=== PATIENT | male | born 1955 | race Caucasian/White ===

== ENCOUNTER → 2017-12-31 | Outpatient (CLI) | payer OTHER | LOC: BMCIMAGING 10:03 | PROVIDERS: ATTEND Emergency Medicine | DX: J40 Bronchitis, not specified as acute or chronic (principal) ==

== ENCOUNTER → 2018-02-16 | Outpatient (CLI) | payer OTHER | LOC: FIMAGING 15:12 | PROVIDERS: ATTEND Internal Medicine | DX: J98.4 Other disorders of lung (principal); I77.819 Aortic ectasia, unspecified site; K80.20 Calculus of gallbladder without cholecystitis without obstruction ==

== ENCOUNTER 2018-03-01 08:09 | Inpatient (IN) | payer OTHER ==
--- NOTE | 2018-03-01 09:40 | EDPHY ---
H & P Smoking Status: Never smoked Time Seen by Provider: 03/01/18 09:02 HPI/ROS: CHIEF COMPLAINT: Dyspnea, weakness, abdominal pain and bloating HISTORY OF PRESENT ILLNESS: 62-year-old male presents to the emergency department with weakness and dyspnea. Patient states since November she has had a chronic cough after recently moving here from [facility]. He has seen his primary care provider for this and has tried antibiotics, prednisone, Advair , albuterol inhaler all without relief. He most recently tried omeprazole without relief as well. He went back to [facility] to see a sledger and have pulmonary function testing done and he was told that this was fairly normal and did not have great improvement after nebulizer. He has no associated pain in his chest with this. He does knows not feel he can get a full deep breath of air. He has been becoming progressively more short of breath especially with just walking to the bathroom or down the carl. He has not noticed any pain or swelling in his lower legs. He had a CT scan of his chest ordered by his primary care provider, Dr. Braden Stringer a week and half ago. This was with IV contrast and was not angiogram and was otherwise within normal limits. He has had abdominal bloating and some mild diffuse pain associated with this as well as loss of appetite over last 2-3 days. He had a bowel movement this morning and had more hard formed stool. REVIEW OF SYSTEMS: Constitutional: No fever, no chills. Eyes: No double or blurry vision. ENT: No sore throat. Respiratory: Cough, shortness of breath Cardiac: No chest pain. Gastrointestinal: Abdominal pain and bloating as above. Anorexia. No vomiting or diarrhea. Genitourinary: No dysuria. Musculoskeletal: No neck or back pain. Skin: No rashes. Neurological: No headache. (Rachel Montiel) Past Medical/Surgical History: Hypertension (Rachel Montiel) Social History: , recently moved to [place] from [facility] (Rachel Montiel) Physical Exam: General Appearance: Alert, no distress. Heart rate 110, blood pressure 137/87 , 92% on room air. Eyes: Pupils equal and round. Extraocular motions are all intact. ENT: Mouth: Mucous membranes moist. Respiratory: No wheezing, rhonchi, or rales, lungs are clear to auscultation. Cardiovascular: Regular rate and rhythm. Gastrointestinal: Abdomen is soft, obese. He has mild diffuse tenderness with palpation. There is no masses, rebound or guarding noted. Neurological: Alert and oriented x 3, cranial nerves II through XII grossly intact Skin: Warm and dry, no rashes. Musculoskeletal: Nontender to palpate along the cervical, thoracic or lumbar spine. Neck is supple. Extremities: Full range of motion and no peripheral edema. Psychiatric: Patient is oriented X 3, there is no agitation. (Rachel Montiel) Constitutional: Initial Vital Signs Temperature (C) 36.7 C 03/01/18 08:14 Heart Rate 110 H 03/01/18 08:14 Respiratory Rate 18 03/01/18 08:14 Blood Pressure 137/87 H 03/01/18 08:14 O2 Sat (%) 92 03/01/18 08:14 O2 Delivery Mode Nasal Cannula O2 (L/minute) 2 Allergies/Adverse Reactions: No Known Allergies Allergy (Unverified 03/01/18 08:13) Home Medications: Medication Instructions Recorded Acetaminophen [Tylenol 325mg (*)] 325 mg PO DAILY PRN 03/01/18 Albuterol [Proventil Inhaler HFA 1 puffs IH TID 03/01/18 (*)] Cetirizine [ZyrTEC 10 mg (*)] 10 mg PO DAILY 03/01/18 Fluticasone/Salmeter 100/50Mcg 1 puffs IH BID 03/01/18 [Advair 100/50 (*)] Hydrochlorothiazide [HCTZ (*)] 12.5 mg PO DAILY 03/01/18 Omeprazole 40 mg PO DAILY 03/01/18 Simethicone [Gas Relief] 80 - 160 mg PO DAILY PRN 03/01/18 Valsartan 320 mg PO DAILY 03/01/18 Medical Decision Making - Diagnostics Imaging: Discussed imaging studies w/ gas meter mechanic Radiologist - Diagnostics Imaging Results: Imaging Impressions Chest/Thorax CTA 03/01/18 11:21 Impression: 1. Multiple diffuse high volume pulmonary thromboemboli. 2. Minimal linear atelectasis in the anterior basal segment of the right lower lobe and the posterior basal segment of the left lower lobe versus small pulmonary infarcts. 3. Possible right heart strain. Findings and recommendations discussed with Emergency Department physician, Dr. Maurilio Escobedo at 1226 hours on March 01, 2018. Final report concurs with initial preliminary interpretation. ED Course/Re-evaluation: 62-year-old male presents to the emergency department with shortness of breath and fatigue. The case was discussed with Dr. Maurilio Escobedo, secondary supervising physician, who also evaluated the patient. Laboratory rib studies reveal CBC within normal limits. His chemistries reveal creatinine of 1.7 which is up from 1.2 two weeks prior. Sodium and potassium were normal. D-dimer was over 13, BNP was over 10,000, troponin was elevated at 0.388. Dr. Maurilio Escobedo as well as myself spoke with Dr. Gavin Penn, on-call [employer], who also evaluated the patient. Agreed with obtaining echocardiogram in the emergency department. Echocardiogram revealed evidence of right ventricular strain. Discussion was made with Dr. Maurilio Escobedo as well as Radiology as well as cardiology about imaging. Since the patient had an elevated creatinine 1.7 and and his blood pressure was 110/80 with a heart rate of 105, decision was made by non profit job [employer] as well as Dr. Maurilio Escobedo and Dr. Randy Walls, radiologist, to obtain CT pulmonary angiogram and not the triple rule out scan. CT pulmonary angiogram reveals multiple high volume clot noted. No saddle emboli noted. Also evidence of right ventricular strain and pulmonary hypertension. 12:38 p.m.: I spoke with Dr. Carlos Gonsales, sledger on-call, given his right ventricular strain, pulmonary hypertension, high clot volume pulmonary embolism, elevated troponin, and being symptomatic with dyspnea and especially dyspnea on exertion regarding possible thrombolytics. Dr. Carlos Gonsales will talk with Interventional Radiology regarding thrombolytics to see if you would be a candidate. The patient will be admitted to the hospitalist to Dr. Clark to the ICU. ( Rachel Montiel) Differential Diagnosis: Shortness of breath including but not limited to pulmonary infectious process, COPD, asthma, pulmonary embolus and congestive heart failure. (Rachel Montiel) Other Provider: I have discussed this case with FLORENCIA Carmichael, Dr. Penn, non [employer], and Dr. Walls, radiologist. We have reviewed the treatment and diagnostic plan; everyone is in agreement. 1247: I assessed this patient and discussed laboratory and imaging findings. I have extensively discussed the risks and benefits of anticoagulation as well as thrombolysis. The patient is comfortable with plan for medications and admission. Critical care time spent by me, Dr. Escobedo, exclusively with this patient was 30 minutes, exclusive of PA time and exclusive of procedures. The organ system at risk was cardiopulmonary and I consulted with Dr. Bragg and Dr. Walls, gave anticoagulants and thrombolytics, and transferred the patient to the ICU to prevent worsening of the patients condition. (Maurilio Escobedo) - Data Points Laboratory Results: Laboratory Results 03/01/18 08:09 03/01/18 08:09 03/01/18 03/01/18 03/01/18 08:09 08:09 08:09 WBC 10.34 10^3/uL H 10^3/uL (3.80-9.50) RBC 6.08 10^6/uL 10^6/uL (4.40-6.38) Hgb 16.9 g/dL g/dL (13.7-17.5) Hct 49.0 % % (40.0-51.0) MCV 80.6 fL L fL (81.5-99.8) MCH 27.8 pg L pg (27.9-34.1) MCHC 34.5 g/dL g/dL (32.4-36.7) RDW 13.5 % % (11.5-15.2) Plt Count 245 10^3/uL 10^3/uL (150-400) MPV 10.3 fL fL (8.7-11.7) Neut % (Auto) 78.7 % H % (39.3-74.2) Lymph % (Auto) 12.4 % L % (15.0-45.0) [place] % (Auto) 7.9 % % (4.5-13.0) Eos % (Auto) 0.4 % L % (0.6-7.6) Baso % (Auto) 0.2 % L % (0.3-1.7) Nucleat RBC Rel Count 0.0 % % (0.0-0.2) Absolute Neuts (auto) 8.14 10^3/uL H 10^3/uL (1.70-6.50) Absolute Lymphs (auto) 1.28 10^3/uL 10^3/uL (1.00-3.00) Absolute Monos (auto) 0.82 10^3/uL H 10^3/uL (0.30-0.80) Absolute Eos (auto) 0.04 10^3/uL 10^3/uL (0.03-0.40) Absolute Basos (auto) 0.02 10^3/uL 10^3/uL (0.02-0.10) Absolute Nucleated RBC 0.00 10^3/uL 10^3/uL (0-0.01) Immature Gran % 0.4 % % (0.0-1.1) Immature Gran # 0.04 10^3/uL 10^3/uL (0.00-0.10) D-Dimer 13.21 ug/mLFEU H ug/mLFEU (0.00-0.50) Sodium 140 mEq/L mEq/L (135-145) Potassium 4.0 mEq/L mEq/L (3.3-5.0) Chloride 101 mEq/L mEq/L (97-110) Carbon Dioxide 25 mEq/l mEq/l (22-31) Anion Gap 14 mEq/L mEq/L (8-16) BUN 23 mg/dL mg/dL (7-23) Creatinine 1.7 mg/dL H mg/dL (0.7-1.3) Estimated GFR 41 Glucose 134 mg/dL H mg/dL (70-100) Calcium 9.9 mg/dL mg/dL (8.5-10.4) Troponin I 0.388 ng/mL H ng/mL (0.000-0.034) NT-Pro-B Natriuret Pep 01694 pg/mL H pg/mL (0-125) Medications Given: Sodium Chloride (Ns) 1,000 mls @ 125 mls/hr IV CONT BRAYDEN Stop: 08/28/18 13:59 Last Admin: 03/01/18 15:06 Dose: 1,000 mls Discontinued Medications Enoxaparin Sodium (Lovenox) 120 mg SC EDNOW ONE Stop: 03/01/18 12:47 Last Admin: 03/01/18 13:39 Dose: 120 mg Sodium Chloride (Ns) 1,000 mls @ 0 mls/hr IV ONCE ONE PRN Reason: Wide Open Stop: 03/01/18 10:13 Last Admin: 03/01/18 10:23 Dose: Not Given Departure - Departure Disposition: [facility] Acute Clinical Impression: Multiple pulmonary emboli, Pulmonary hypertension Dyspnea Qualifiers: Dyspnea type: unspecified Qualified Code(s): R06.00 - Dyspnea, unspecified
[2018-03-01 09:59] LABS: PLATELET COUNT 245 10^3/uL (150-400)
--- NOTE | 2018-03-01 10:00 | CPEKG ---
Heart Rate: 102 RR Interval: 588 P-R Interval: 168 QRSD Interval: 108 QT Interval: 356 QTC Interval: 464 P [place]: 7 QRS [place]: 148 T Wave [place]: 1 EKG Severity - ABNORMAL ECG - EKG Impression: SINUS TACHYCARDIA EKG Impression: PROBABLE LEFT ATRIAL ABNORMALITY EKG Impression: LEFT POSTERIOR FASCICULAR BLOCK EKG Impression: ABNRM R PROG, CONSIDER ASMI OR LEAD PLACEMENT Electronically Signed By: Maurilio Escobedo 01-Mar-2018 14:57:15
[2018-03-01] MEDS ORDERED: NS 1,000 ML IV ONE (10:12)
[2018-03-01] MEDS ORDERED: IOPAMIDOL (ISOVUE 370) 100 ML BTL IV ONE (11:58)
--- NOTE | 2018-03-01 12:36 | ECHO ---
[email or web address] [address] Main: [phone] Fax: Transthoracic Echocardiogram Name: MARLYS MCCARTY MR#: [id number] Study Date: 03/01/2018 Study Time: 10:26 AM Date of : 1955 Age: 62 year(s) Height: 167.6 cm (66 in.) Weight: 113.4 kg (250 lb.) BSA: 2.2 m2 Gender: Male Examination: Echo Indication: Cardiac: dyspnea, Abnormal EKG Image Quality: Adequate Contrast: Requested by: Rachel Montiel BP: 115 mmHg/81 mmHg Heart Rate: Rhythm: Indication: Cardiac: dyspnea, Abnormal EKG Procedure Staff Churn Drill Operator: Belen Parks [facility] Reading Physician: Gavin Penn MD Requesting Provider: Conclusions: Normal size left ventricle. Moderate concentric LV hypertrophy. Normal global systolic LV function. EF is 55 %. Enlarged right heart. Trivial to mild mitral regurgitation. The aortic valve is tri-leaflet. No aortic valve stenosis is present. The tricuspid valve is normal in appearance and function. Mild to moderate tricuspid valve regurgitation. Right ventricular systolic pressure measures 59mmHg. Mild pulmonic valve regurgitation is noted. Normal size ascending aorta measuring 3.5 cm. The IVC is dilated. Measurements: Chambers Valvular Assessment AV/MV Valvular Assessment TV/PV Normal Normal Normal Name Value Range Name Value Range Name Value Range Ao Jessie (2D): 3.3 cm (1.4 cm-2.6 AV Vmax: 1.35 m/s (1 m/s-1.7 TR Vmax: 3.50 mm/s ( - ) cm) m/s) TR PGmax: 49 mmHg ( - ) IVSd (2D): 1.8 cm (0.6 cm-1.1 AV maxP mmHg ( - ) syst. PAP: 59 mmHg ( - ) cm) AV meanP mmHg ( - ) PV Vmax: 0.60 m/s (0.6 m/s-0.9 LVDd (2D): 3.8 cm (4.2 cm-5.9 LVOT Vmax: 1.06 m/s (0.7 m/s-1.1 m/s) cm) m/s) PV PGmax: 1 mmHg ( - ) LVDs (2D): 2.4 cm (2.1 cm-4 BRIGIDO (Vmax): 3.3 cm2 ( - ) cm) BRIGIDO (VTI): 3.4 cm ( - ) LVPWd (2D): 1.4 cm (0.6 cm-1 MV E Vmax: 0.87 m/s ( - ) cm) MV A Vmax: 0.55 m/s ( - ) LVOTd 2.3 cm 2.3 cm mm MV E/A: 1.58 ( - ) Patient: MARLYS MCCARTY Study Date: 03/01/2018 Page 1 of 2 10:26 AM LVEF (MOD4): 55 % (>=55 %) MV PHT: 0.036 s ( - ) RVDd(2D): 4.0 cm (1.9 cm-3.8 MVA (PHT): 6.1 s ( - ) cmmm) Continued Measurements: Chambers Valvular Assessment AV/MV Valvular Assessment TV/PV Name Value Name Value Name Value LADs: 3.9 cm MV DecTime: 113 m/s CVP (est.): 10 mmHg LADs Lon.3 cm MV E/E' Lateral: 11.90 LA Area: 19.6 cm2 RA Area: 26.8 cm2 Additional Vessels Name Value Ao Ascendin.5 cm Inferior Vena Cava: 2.5 cm Findings: Left Ventricle: Normal size left ventricle. Moderate concentric LV hypertrophy. Normal global systolic LV function. EF is 55 %. No regional wall motion abnormality. Unable to assess diastolic dysfunction. Right Ventricle: Enlarged right heart. Left Atrium: The left atrium is normal in size. Right Atrium: The right atrium is normal in size. Mitral Valve: The mitral valve is normal in appearance and function. Trivial to mild mitral regurgitation. Aortic Valve: The aortic valve is tri-leaflet. There is no significant aortic valve regurgitation. No aortic valve stenosis is present. Tricuspid Valve: The tricuspid valve is normal in appearance and function. Mild to moderate tricuspid valve regurgitation. Right ventricular systolic pressure measures 59mmHg. The pulmonary artery pressure is moderately increased. Pulmonic Valve: The pulmonic valve is normal in appearance and function. Mild pulmonic valve regurgitation is noted. Aorta: The aorta is normal. Normal size aortic root measuring 3.3 cm. Normal size ascending aorta measuring 3.5 cm. IVC: The IVC is dilated. Pericardium: No pericardial effusion. No pleural effusion. (No Signature Object) Patient: MALRYS MCCARTY Study Date: 03/01/2018 Page 2 of 2 10:26 AM [id number]
[2018-03-01] MEDS ORDERED: ENOXAPARIN 120 MG/0.8 ML SYR SC ONE (12:46)
[2018-03-01] MEDS ORDERED: ACETAMINOPHEN 325 MG TAB PO PRN (13:59)
[2018-03-01] MEDS ORDERED: ONDANSETRON 4 MG/2 ML VIAL IVP PRN (13:59)
[2018-03-01] MEDS ORDERED: ONDANSETRON DISINTEGRATING 4 MG TAB PO PRN (13:59)
[2018-03-01] MEDS ORDERED: oxyCODONE IR 5 MG TAB PO PRN (13:59)
[2018-03-01] MEDS ORDERED: LORazepam 2 MG/ML INJ IVP PRN (13:59)
--- NOTE | 2018-03-01 14:01 | PDCARCONS ---
Cardiology Consult Reason for Consult: Shortness of breath and chest tightness Chief Complaint: shortness of breath and chest tightness Requesting Physician: ER physician History of Present Illness: Patient is a 62 y/o male with a history of HTN, but no DM, HLP, or CAD who presented to [facility] ED for worsening dyspnea, hypotension, and chest discomfort. Patient moved from [place] about 5 months ago and a month later, developed a nonproductive cough and very mild dyspnea on exertion. A week ago he flew back to [place] and saw a wet process miller head for workup, which was unremarkable (per patient reports). His PCP has given him antibiotics, Advair, and an albuterol inhaler for his cough, none of which improved his symptoms. For the last week, his dyspnea has significantly worsened. He is not usually on oxygen at home, but began using his 's oxygen. In the ED, his troponin was elevated (0.388) , D-dimer was elevated (13.21), and his creatinine was slightly increased from previously (1.7 from 1.5). His EKG showed some ST changes as well as significant right axis deviation. In the ER, the patient appeared somewhat uncomfortable. Blood pressure was noted to be within normal limits. 12 point review of systems was unremarkable. History Information - Allergies/Home Medication List Allergies/Adverse Reactions: No Known Allergies Allergy (Unverified 03/01/18 08:13) Home Medications: Acetaminophen [Tylenol 325mg (*)] 325 mg PO DAILY PRN 03/01/18 [Last Taken Unknown] Albuterol [Proventil Inhaler HFA (*)] 1 puffs IH TID 03/01/18 [Last Taken ] Cetirizine [ZyrTEC 10 mg (*)] 10 mg PO DAILY 03/01/18 [Last Taken 03/01/18] Fluticasone/Salmeter 100/50Mcg [Advair 100/50 (*)] 1 puffs IH BID 03/01/18 [ Last Taken 02/28/18 21:00] Hydrochlorothiazide [HCTZ (*)] 12.5 mg PO DAILY 03/01/18 [Last Taken 03/01/18] Omeprazole 40 mg PO DAILY 03/01/18 [Last Taken 03/01/18] Simethicone [Gas Relief] 80 - 160 mg PO DAILY PRN 03/01/18 [Last Taken 02/28/18 21:00] Valsartan 320 mg PO DAILY 03/01/18 [Last Taken 03/01/18] I have personally reviewed and updated: family history, medical history, social history, surgical history Past Medical History: - Past Medical History hypertension - Surgical History Reports: appendectomy - Family History Positive for: myocardial infarction, stroke Additional family history: prostate cancer - Social History Smoking Status: Never smoked Alcohol Use: None Drug Use: None Cardiac History - Cardiac History Cardiac Risk Factors: hypertension (>140/90), male Timing/Duration: Weeks Severity: moderate Severity Scale: 4 Location: epigastric Activities at Onset: activity Modifying Factors: improves with: lying down, oxygen, rest Associated Symptoms: shortness of breath Physical Exam Physical Exam: Temp Pulse Resp BP Pulse Ox 36.7 C 101 H 20 119/88 H 93 03/01/18 08:59 03/01/18 12:50 03/01/18 12:50 03/01/18 12:50 03/01/18 12:50 O2 (L/minute) 2 Constitutional: no apparent distress, appears nourished, not in pain Eyes: PERRL Ears, Nose, Mouth, Throat: moist mucous membranes, hearing normal, ears appear normal Cardiovascular: regular rate and rhythym, JVD, pulses symmetric bilaterally, No systolic murmur, No diastolic murmur Peripheral Pulses: 2+: dorsalis-pedis (R), dorsalis-pedis (L) Respiratory: no respiratory distress, clear to auscultation, No respiratory distress Gastrointestinal: normoactive bowel sounds Skin: warm, No rash Musculoskeletal: full muscle strength Neurologic: AAOx3, sensation intact bilaterally, CN II-XII Intact Psychiatric: interacting appropriately, not anxious, not encephalopathic Lab and Imaging 03/01/18 08:09 03/01/18 08:09 WBC 10.34 10^3/uL (3.80-9.50) H 03/01/18 08:09 RBC 6.08 10^6/uL (4.40-6.38) 03/01/18 08:09 Hgb 16.9 g/dL (13.7-17.5) 03/01/18 08:09 Hct 49.0 % (40.0-51.0) 03/01/18 08:09 MCV 80.6 fL (81.5-99.8) L 03/01/18 08:09 MCH 27.8 pg (27.9-34.1) L 03/01/18 08:09 MCHC 34.5 g/dL (32.4-36.7) 03/01/18 08:09 RDW 13.5 % (11.5-15.2) 03/01/18 08:09 Plt Count 245 10^3/uL (150-400) 03/01/18 08:09 MPV 10.3 fL (8.7-11.7) 03/01/18 08:09 Neut % (Auto) 78.7 % (39.3-74.2) H 03/01/18 08:09 Lymph % (Auto) 12.4 % (15.0-45.0) L 03/01/18 08:09 [place] % (Auto) 7.9 % (4.5-13.0) 03/01/18 08:09 Eos % (Auto) 0.4 % (0.6-7.6) L 03/01/18 08:09 Baso % (Auto) 0.2 % (0.3-1.7) L 03/01/18 08:09 Nucleat RBC Rel Count 0.0 % (0.0-0.2) 03/01/18 08:09 Absolute Neuts (auto) 8.14 10^3/uL (1.70-6.50) H 03/01/18 08:09 Absolute Lymphs (auto) 1.28 10^3/uL (1.00-3.00) 03/01/18 08:09 Absolute Monos (auto) 0.82 10^3/uL (0.30-0.80) H 03/01/18 08:09 Absolute Eos (auto) 0.04 10^3/uL (0.03-0.40) 03/01/18 08:09 Absolute Basos (auto) 0.02 10^3/uL (0.02-0.10) 03/01/18 08:09 Absolute Nucleated RBC 0.00 10^3/uL (0-0.01) 03/01/18 08:09 Immature Gran % 0.4 % (0.0-1.1) 03/01/18 08:09 Immature Gran # 0.04 10^3/uL (0.00-0.10) 03/01/18 08:09 D-Dimer 13.21 ug/mLFEU (0.00-0.50) H 03/01/18 08:09 Sodium 140 mEq/L (135-145) 03/01/18 08:09 Potassium 4.0 mEq/L (3.3-5.0) 03/01/18 08:09 Chloride 101 mEq/L (97-110) 03/01/18 08:09 Carbon Dioxide 25 mEq/l (22-31) 03/01/18 08:09 Anion Gap 14 mEq/L (8-16) 03/01/18 08:09 BUN 23 mg/dL (7-23) 03/01/18 08:09 Creatinine 1.7 mg/dL (0.7-1.3) H 03/01/18 08:09 Estimated GFR 41 03/01/18 08:09 Glucose 134 mg/dL (70-100) H 03/01/18 08:09 Calcium 9.9 mg/dL (8.5-10.4) 03/01/18 08:09 Troponin I 0.388 ng/mL (0.000-0.034) H 03/01/18 08:09 NT-Pro-B Natriuret Pep 65910 pg/mL (0-125) H 03/01/18 08:09 Visualized and Interpreted Chest x-ray results: No EKG Interpretation: Positive for: normal sinsus rhythm EKG additional interpertation: S1Q3T3 with sinus tachycardia and new right axis deviation Telemetry: Sinus tachycardia Echocardiogram: Normal LVEF with dilation of the RV. There is not significant valvular pathology. There is mild to moderate LVH noted. No pericardial effusion A/P Assessment: Patient is a 62 y/o male with HTN, and progressive dyspnea. No CAD, HLP, or DM. New right axis deviation with sinus tachycardia, S1Q3T3 pattern on ECG. Mild elevation in creatinine (over baseline) has been noted. Question about CAD given ECG changes and mild elevation to the troponin. There was also significant elevation to both BNP and d-dimer. Cardiology with recommendations to pursue CT angiography (to rule out PE). This testing was performed and revealed large volume PE. Plan: Would have patient assessed by Pulm/Crit care team (and likely IR given the thrombus burden noted). Cardiology can see the patient as needed through this admission.
--- NOTE | 2018-03-01 14:19 | PDGENHP ---
History and Physical - Chief Complaint Hypotension, Dyspnea - History of Present Illness This is a 62 yo male who presented to the ED due to hypotension and dyspnea. He does not typically use supplemental Oxygen but during the past few days he has been using his 's O2. He noted his BP to be in the 80's systolic and presented to the ED. He has been experiencing chest tightness for the past few days. Trop was checked and it was elevated. D-dimer is elevated. A CTA of the chest shows High volume P.E. with right strain. No saddle P.E. An echocardiogram is c/w an EF of 55% and right sided strain. There is no documented wall motion abnormalities. EKG does not show ischemia. He moved from [place] about a year ago. He says that shortly after moving here he began having resp issues to include SOB and cough. His insurance is through [place] and therefore he flew back to [place] recently to be evaluated by a faro dealer and he had a an unremarkable w/u. It is unclear what w/u was done. Since November He has had a cough. He has seen his primary care provider for this and has tried antibiotics, prednisone, Advair, albuterol inhaler all without relief. He most recently tried omeprazole without relief as well. PM/SHx: Hypertension, appendectomy, t6 hemangioma, laminectomy Social History: , recently moved to [place] from [facility] no tobacco, etoh, or illicits History Information - Allergies/Home Medication List Allergies/Adverse Reactions: No Known Allergies Allergy (Unverified 03/01/18 08:13) Home Medications: Acetaminophen [Tylenol 325mg (*)] 325 mg PO DAILY PRN 03/01/18 [Last Taken Unknown] Albuterol [Proventil Inhaler HFA (*)] 1 puffs IH TID 03/01/18 [Last Taken ] Cetirizine [ZyrTEC 10 mg (*)] 10 mg PO DAILY 03/01/18 [Last Taken 03/01/18] Fluticasone/Salmeter 100/50Mcg [Advair 100/50 (*)] 1 puffs IH BID 03/01/18 [ Last Taken 02/28/18 21:00] Hydrochlorothiazide [HCTZ (*)] 12.5 mg PO DAILY 03/01/18 [Last Taken 03/01/18] Omeprazole 40 mg PO DAILY 03/01/18 [Last Taken 03/01/18] Simethicone [Gas Relief] 80 - 160 mg PO DAILY PRN 03/01/18 [Last Taken 02/28/18 21:00] Valsartan 320 mg PO DAILY 03/01/18 [Last Taken 03/01/18] I have personally reviewed and updated: medical history, social history - Social History Smoking Status: Never smoked Review of Systems Review of Systems: ROS: 10pt was reviewed & negative except for what was stated in HPI & below Physical Exam Physical Exam: Temp Pulse Resp BP Pulse Ox 36.8 C 98 20 112/75 94 03/01/18 14:00 03/01/18 14:00 03/01/18 12:50 03/01/18 14:00 03/01/18 14:00 O2 (L/minute) 2 Constitutional: no apparent distress Eyes: PERRL, EOMI Ears, Nose, Mouth, Throat: moist mucous membranes Cardiovascular: regular rate and rhythym, edema (trace bilateral pedal edema) Respiratory: no respiratory distress, clear to auscultation Gastrointestinal: normoactive bowel sounds, soft, non-tender abdomen Genitourinary: no bladder fullness Skin: warm Musculoskeletal: full muscle strength Neurologic: AAOx3 Psychiatric: interacting appropriately, not anxious, not encephalopathic Lymph, Heme, Immunologic: No petechiae Lab Data & Imaging Review 03/01/18 08:09 03/01/18 08:09 WBC 10.34 10^3/uL (3.80-9.50) H 03/01/18 08:09 RBC 6.08 10^6/uL (4.40-6.38) 03/01/18 08:09 Hgb 16.9 g/dL (13.7-17.5) 03/01/18 08:09 Hct 49.0 % (40.0-51.0) 03/01/18 08:09 MCV 80.6 fL (81.5-99.8) L 03/01/18 08:09 MCH 27.8 pg (27.9-34.1) L 03/01/18 08:09 MCHC 34.5 g/dL (32.4-36.7) 03/01/18 08:09 RDW 13.5 % (11.5-15.2) 03/01/18 08:09 Plt Count 245 10^3/uL (150-400) 03/01/18 08:09 MPV 10.3 fL (8.7-11.7) 03/01/18 08:09 Neut % (Auto) 78.7 % (39.3-74.2) H 03/01/18 08:09 Lymph % (Auto) 12.4 % (15.0-45.0) L 03/01/18 08:09 [place] % (Auto) 7.9 % (4.5-13.0) 03/01/18 08:09 Eos % (Auto) 0.4 % (0.6-7.6) L 03/01/18 08:09 Baso % (Auto) 0.2 % (0.3-1.7) L 03/01/18 08:09 Nucleat RBC Rel Count 0.0 % (0.0-0.2) 03/01/18 08:09 Absolute Neuts (auto) 8.14 10^3/uL (1.70-6.50) H 03/01/18 08:09 Absolute Lymphs (auto) 1.28 10^3/uL (1.00-3.00) 03/01/18 08:09 Absolute Monos (auto) 0.82 10^3/uL (0.30-0.80) H 03/01/18 08:09 Absolute Eos (auto) 0.04 10^3/uL (0.03-0.40) 03/01/18 08:09 Absolute Basos (auto) 0.02 10^3/uL (0.02-0.10) 03/01/18 08:09 Absolute Nucleated RBC 0.00 10^3/uL (0-0.01) 03/01/18 08:09 Immature Gran % 0.4 % (0.0-1.1) 03/01/18 08:09 Immature Gran # 0.04 10^3/uL (0.00-0.10) 03/01/18 08:09 D-Dimer 13.21 ug/mLFEU (0.00-0.50) H 03/01/18 08:09 Sodium 140 mEq/L (135-145) 03/01/18 08:09 Potassium 4.0 mEq/L (3.3-5.0) 03/01/18 08:09 Chloride 101 mEq/L (97-110) 03/01/18 08:09 Carbon Dioxide 25 mEq/l (22-31) 03/01/18 08:09 Anion Gap 14 mEq/L (8-16) 03/01/18 08:09 BUN 23 mg/dL (7-23) 03/01/18 08:09 Creatinine 1.7 mg/dL (0.7-1.3) H 03/01/18 08:09 Estimated GFR 41 03/01/18 08:09 Glucose 134 mg/dL (70-100) H 03/01/18 08:09 Calcium 9.9 mg/dL (8.5-10.4) 03/01/18 08:09 Troponin I 0.388 ng/mL (0.000-0.034) H 03/01/18 08:09 NT-Pro-B Natriuret Pep 74979 pg/mL (0-125) H 03/01/18 08:09 Assessment & Plan Assessment: #Acute P.E. with Hemodynamic compromise #Hypotension #Right heart strain and elevated troponin likely from acute P.E. #Hypoxemia #Pedal Edema #Acute Kidney Injury #Obesity Plan: IR guided thrombolytics Anticoagulation. He has received Lovenox in the E.D., will start Heparin 12 hr after administration Hold Home BP meds check US of LE Cont IVF D/W ER team and with Dr. Carlos Gonsales who will be consulting Cards is consulting as well, but strain and elevated trop likely from acute P.E. Will await recc's. appropriate home meds total critical care time is 60 mins
--- NOTE | 2018-03-01 14:42 | ASMTCMCOM ---
CM Note CM Note Notes: Patient admitted with SOB and progressive dyspnea for 4 months. Efforts to treat conservatively failed. In ED, imagine showed diffuse bilateral PE. He is admitted for IR guided thrombolytics and anticoagulation. Patient is and recently moved to [place] from [place]. He will likely be independent upon discharge, but Case Management will follow. Date Signed: 03/01/2018 02:41 PM Electronically Signed By:Lorri Boothe RN
[2018-03-01] MEDS: NS 1,000 ML IV SCH ×2 (15:06→18:15)
[2018-03-01 15:38] LABS: INR 1.19 (0.83-1.16); PROTIME(PATIENT) 15.3 SEC (12.0-15.0)
[2018-03-01] MEDS ORDERED: ALBUTEROL 60 PUFFS/8 GM MDI IH SCH (16:00)
--- NOTE | 2018-03-01 16:10 | PDMN ---
Medical Necessity Medical necessity: Pt meets IP criteria per MD & MCG [id number]; est los >2 mn for eval/tx of multiple PEs w/hypoxemia, htn & elevated troponin; admit to ICU for further workup/close monitoring, Pulmonology/Cardiology consults, IV Heparin & IVFs
[2018-03-01] MEDS ORDERED: FLUMAZENIL 0.5 MG/5 ML MDV IVP PRN (16:11)
[2018-03-01] MEDS ORDERED: MIDAZOLAM 2 MG/2 ML VIAL IVP PRN (16:11)
[2018-03-01] MEDS ORDERED: PROTAMINE SULFATE 50 MG/5 ML VIAL IVP PRN (16:11)
[2018-03-01] MEDS ORDERED: fentaNYL 100 MCG/2 ML INJ IVP PRN (16:11)
[2018-03-01] MEDS ORDERED: GLUCAGON HCL 1 MG VIAL IVP PRN (16:11)
[2018-03-01] MEDS ORDERED: ALTEPLASE 2 MG VIAL IVP PRN (16:11)
[2018-03-01] MEDS ORDERED: NALOXONE HCL 0.4 MG/ML INJ IVP PRN (16:11)
[2018-03-01] MEDS ORDERED: HEPARIN 10,000 UNIT/10 ML MDV (1,000 UNIT/ML) IVP PRN (16:11)
[2018-03-01] MEDS ORDERED: MEPERIDINE 25 MG/ML SYR IVP PRN (16:11)
--- NOTE | 2018-03-01 16:16 | CPEKG ---
Heart Rate: 101 RR Interval: 594 P-R Interval: 164 QRSD Interval: 108 QT Interval: 340 QTC Interval: 441 P [place]: 23 QRS [place]: 145 T Wave [place]: -14 EKG Severity - ABNORMAL ECG - EKG Impression: SINUS TACHYCARDIA EKG Impression: PROBABLE LEFT ATRIAL ABNORMALITY EKG Impression: BORDERLINE R WAVE PROGRESSION, ANTERIOR LEADS EKG Impression: LEFT POSTERIOR FASCICULAR BLOCK Electronically Signed By: Gavin Yates 02-Mar-2018 12:10:28
--- NOTE | 2018-03-01 16:53 | PDRADPRE ---
Radiology History & Physical Indication for procedure: thromboembolism Home medications: Acetaminophen [Tylenol 325mg (*)] 325 mg PO DAILY PRN 03/01/18 [Last Taken Unknown] Albuterol [Proventil Inhaler HFA (*)] 1 puffs IH TID 03/01/18 [Last Taken ] Cetirizine [ZyrTEC 10 mg (*)] 10 mg PO DAILY 03/01/18 [Last Taken 03/01/18] Fluticasone/Salmeter 100/50Mcg [Advair 100/50 (*)] 1 puffs IH BID 03/01/18 [ Last Taken 02/28/18 21:00] Hydrochlorothiazide [HCTZ (*)] 12.5 mg PO DAILY 03/01/18 [Last Taken 03/01/18] Omeprazole 40 mg PO DAILY 03/01/18 [Last Taken 03/01/18] Simethicone [Gas Relief] 80 - 160 mg PO DAILY PRN 03/01/18 [Last Taken 02/28/18 21:00] Valsartan 320 mg PO DAILY 03/01/18 [Last Taken 03/01/18] Allergies/Adverse Reactions: No Known Allergies Allergy (Unverified 03/01/18 08:13) Mental status: A&Ox3 Mallampati Score: Class 2 (Patient is admitted for bilateral submassive PE. He has agreed to undergo catheter-directed thrombolysis in the [place] [facility].)
--- NOTE | 2018-03-01 16:56 | GCON ---
[f rep st] CONSULTATION PULMONARY CRITICAL CARE CONSULTATION DATE OF CONSULTATION: 03/01/2018 REASON FOR CONSULTATION: Large volume pulmonary embolic disease. HISTORY OF PRESENT ILLNESS: The patient is a pleasant 62-year-old who presented to the emergency dep artment with dyspnea on exertion. He was found to be hypotensive. He had 2 or 3 days of increasing shortness of breath and dyspnea on exertion. A CT-A of the chest showed large volume pulmonary embol ic disease with clot in the proximal right and left main pulmonary arteries. There was evidence of r ight heart strain. A cardiac echo documented estimated pressures to be 60 with right ventricular vol ume/pressure overload. There is no previous history of thromboembolic disease. He denies lower extremity symptoms. He did travel to [place] and back by plane approximately 2 weeks ago. [facility]. He has been in [place] since October. He has had some shortness of breath s annette his arrival attributed to the altitude. He also had a dry cough. Recent pulmonary evaluation [facility] reportedly showed his pulmonary function was at "75%." He denies any lower extremity ac [place] symptoms. He does have some occasional cramping in his legs. He had some bilateral cramping a w los [place] or two ago. He is followed at the [facility]. He was recently treated with inhalers , prednisone, and antibiotics without any particular effect. He was also given omeprazole. He does have a history of hypertension and obesity. PAST MEDICAL HISTORY: As outlined above: Systemic hypertension, obesity, cough. PAST SURGICAL HISTORY: Surgeries have included an appendectomy and laminectomy for a benign angioma at T6. SOCIAL HISTORY: The patient is . [place]. He works from home. Alcohol and tobacco are denied. FAMILY HISTORY: Negative for thromboembolic disease by report. REVIEW OF SYSTEMS: Negative for heart disease. Denies lower extremity edema or any leg symptoms. Aracelis dewey has had no chest pain, no hemoptysis. PHYSICAL EXAMINATION: GENERAL: Reveals a pleasant gentleman who is in no distress currently. Blood pressure is 135/85, heart rate 100 with sinus rhythm on the monitor. Respiratory rate is 20. On 4 L saturations are 95%. He is afebrile. NECK: Unremarkable for lymphadenopathy or thyromegaly. ELODIA NT: Oropharyngeal tissues are increased. CHEST: Clear bilaterally. Breath sounds and excursions a re diminished, secondary to body habitus. HEART: Mildly tachycardic. There are no obvious gallops. P2 does appear to be increased. Heart tones are generally distant. ABDOMEN: significantly overwei ght. Organomegaly could not be appreciated. There is no tenderness. Bowel sounds are present, but diminished. : No Johnson catheter is in place. EXTREMITIES: There is trace edema on the right com pared to the left. The right lower extremity at the calf is approximately an inch and a quarter clovis er than the left. No cords are appreciated. There is no tenderness to palpation. NEUROLOGIC: Exam ination is within normal limits. LABORATORY/IMAGING: CT angiogram is positive as outlined above for large volume pulmonary embolic di sease. This includes clot proximally in both right and left pulmonary arteries. Clot extends distal ly into essentially all lobes White blood cell count is 10,300, hematocrit 49, platelets are 245,000. PT was 15 on admission with a PTT of 33. Fibrinogen is 387. D-dimer is 13.2. Chemistries are within normal limits with the exc eption of an initial creatinine of 1.7, follow up creatinine is 1.6, BUN is 23. Troponin is elevated at 0.38 with a BNP of approximately 10,000. ASSESSMENT: 1. Large volume pulmonary embolic disease. This is associated with right heart strain, hypoxemia, a nd initial hypotension. He has responded nicely to fluids. Full-dose enoxaparin was started in the ED. He has not had subsequent doses yet. I do feel he would be a good candidate for tPA lysis as he has large volume clot which is quite proximal and obstructive. The EKOS catheter may be able to be used successfully as well. He has no obvious contraindications to intrapulmonary artery tPA. He has had no recent surgery or trauma. There is no evidence of cancer. He has had no blood in his stools or problems with gastrointestinal bleeding. His case has been discussed with Interventional Radiolo gy and with Cardiology. 2. Pulmonary hypertension. He has moderate pulmonary hypertension by echo. He has been seen by Car diology. There is associated right heart strain. I imagine most of this is secondary to acute pulmo nary embolic disease. He does have a history of obesity and snoring and possibly could be hypoxemic at altitude here leading to a component of chronic pulmonary hypertension independent of pulmonary em bolic disease. This will need to be sorted out later as an outpatient. 3. Obesity. 4. History of systemic hypertension. 5. Enlarged right lower extremity. I would not be surprised to find clot related to the venous drai nage of the right lower extremity. A venous Doppler ultrasound has been ordered. There is no emerge ncy to this procedure at this point in time as it will not change initial management. PLAN: The patient will be taken to Interventional Radiology for directed tPA and possible EKOS lysis or mechanical lysis. He will be returned to the intensive care unit I anticipate with a catheter an d tPA drip in place. Further plans and recommendations will be made based on his progress over the next 12-24 hours. /[id number]/MODL
[2018-03-01] MEDS ORDERED: ALTEPLASE 5 MG in NS 100 ML IV SCH (17:30)
[2018-03-01] MEDS ORDERED: HEPARIN/DEXTROSE 25,000 UNIT/500 ML BAG ONE (17:54)
[2018-03-01] MEDS ORDERED: LIDOCAINE 1% 300 MG/30 ML SDV ONE (18:05)
[2018-03-01] MEDS ORDERED: IOPAMIDOL (ISOVUE-300) 100 ML BTL ONE (18:05)
[2018-03-01] MEDS: ALTEPLASE 5 MG in NS 100 ML IV SCH (18:16)
--- NOTE | 2018-03-01 18:32 | PDRADPN ---
Radiology Procedure Note Date of Procedure: 03/01/18 Radiologist: Andrea Carr Anesthesia: IV Sedation Pre-op Diagnosis: PE Post-op Diagnosis: PE Procedure: PE thrombolysis Inf/Abcess present in the surg proc area at time of surgery?: No EBL: Minimal
[2018-03-01] MEDS ORDERED: SIMETHICONE 80 MG TAB CHEW PO PRN (20:21)
[2018-03-01] MEDS: FLUTICASONE/SALMETER 100/50MCG DISKUS IH SCH (22:57)
[2018-03-01] MEDS: ALBUTEROL 60 PUFFS/8 GM MDI IH SCH (22:59)
[2018-03-02] MEDS: ALTEPLASE 5 MG in NS 100 ML IV SCH ×4 (01:04→17:01)
[2018-03-02] MEDS ORDERED: HEPARIN/DEXTROSE 500 ML IV SCH (01:30)
[2018-03-02] MEDS ORDERED: HEPARIN 10,000 UNIT/10 ML MDV (1,000 UNIT/ML) IVP PRN (01:30)
[2018-03-02] MEDS ORDERED: HEPARIN 10,000 UNIT/10 ML MDV (1,000 UNIT/ML) IVP ONE (01:30)
[2018-03-02 07:05] LABS: PLATELET COUNT 173 10^3/uL (150-400)
[2018-03-02] MEDS: ALBUTEROL 60 PUFFS/8 GM MDI IH SCH ×3 (08:10→22:13)
[2018-03-02] MEDS: FLUTICASONE/SALMETER 100/50MCG DISKUS IH SCH ×2 (08:11→22:14)
[2018-03-02] MEDS: CETIRIZINE 10 MG TAB PO SCH (08:12)
[2018-03-02] MEDS: PANTOPRAZOLE SODIUM 40 MG TAB PO SCH (08:12)
--- NOTE | 2018-03-02 08:40 | CPEKG ---
Heart Rate: 87 RR Interval: 690 P-R Interval: 176 QRSD Interval: 116 QT Interval: 440 QTC Interval: 530 P [place]: 50 QRS [place]: 130 T Wave [place]: -39 EKG Severity - ABNORMAL ECG - EKG Impression: SINUS RHYTHM EKG Impression: PROBABLE LEFT ATRIAL ABNORMALITY EKG Impression: LEFT POSTERIOR FASCICULAR BLOCK EKG Impression: BORDERLINE R WAVE PROGRESSION, ANTERIOR LEADS Electronically Signed By: Gavin Yates 02-Mar-2018 12:09:20
[2018-03-02] MEDS: NS 1,000 ML IV SCH ×2 (08:43→17:01)
[2018-03-02] MEDS ORDERED: PROTOCOL POTASSIUM 1 DOSE MISC PRN (09:38)
[2018-03-02] MEDS: OXYMETAZOLINE 30 ML NASAL SPRAY EACHNARE SCH ×2 (11:10→22:14)
--- NOTE | 2018-03-02 13:55 | HOSPPROG ---
Hospitalist Progress Note Assessment/Plan: #Acute P.E. with Hemodynamic compromise #Bilateral LE DVT with pedal edema -Right popliteal and calf vein dvt's -Left distal femoral, popliteal, and calf vein dvt's #Hypotension, resolved #Right heart strain and elevated troponin likely from acute P.E. -improving, repeat trop this morning decreasing -CP this morning, does not appear cardiac in nature. EKG reviewed, no signs of ischemia. Trop trending down #Hypoxemia, persistent, still on 4L O2 #Query TIARA #Pedal Edema #Acute Kidney Injury, resolved with IVF #Leukocytosis: resolved #Obesity Plan: IR catheter guided thrombolytics, will return to IR today Heparin Hold Home BP meds Cont IVF, the pt is NPO. can stop once he is no longer NPO Cards is consulting as well, but strain and elevated trop likely from acute P.E. Will await recc's. appropriate home meds CXR in a.m. Trial of Lasix if pedal edema worsens total critical care time in this pt with acute p.e. is 35 mins D/w Intensive care team. Subjective: CP this morning. Does not radiate to neck or arms. no sob. no n/v. Objective: Vital Signs Temp Pulse Resp BP Pulse Ox 36.5 C 77 22 H 117/75 95 03/01/18 18:32 03/02/18 12:00 03/02/18 12:00 03/02/18 12:00 03/02/18 12:00 Laboratory Results 03/02/18 06:40 03/02/18 06:40 03/01/18 03/02/18 03/03/18 05:59 05:59 05:59 Intake Total 2301 Output Total 450 250 Balance 1851 -250 PT 15.3 SEC (12.0-15.0) H 03/01/18 15:20 INR 1.19 (0.83-1.16) H 03/01/18 15:20 - Physical Exam Constitutional: no apparent distress, not in pain Eyes: PERRL, EOMI Ears, Nose, Mouth, Throat: moist mucous membranes, hearing normal Cardiovascular: regular rate and rhythym Respiratory: reduced air movement Gastrointestinal: normoactive bowel sounds, soft, non-tender abdomen Skin: warm Neurologic: AAOx3 Psychiatric: interacting appropriately, not anxious, not encephalopathic Lymph, Heme, Immunologic: No petechiae ICD10 Worksheet Patient Problems: Problems Problem Status Onset Dyspnea Acute Multiple pulmonary emboli Acute Pulmonary hypertension Acute
--- NOTE | 2018-03-02 14:41 | PDINTPN ---
[facility] Progress Note Assessment/Plan: Assessment: Large volume pulmonary embolism with initial hypotension, hypoxemia. Initial right heart pressures approximately 60. Being treated with tPA lysis via pulmonary artery catheter placed by interventional Radiology. He is doing well with this. Bilateral deep venous thrombosis. Little in the way of symptoms. Right leg has been bigger than the left but this was not noticed by the patient. No pain , no significant edema. Treatment as per PE: Some of the infusing tPA will lyse clot in his legs as well. No specific interventional treatment would appear to be warranted. Obesity History of reactive airways disease: On Advair and albuterol. History of systemic hypertension, reflux, allergies. History of snoring and sleep apnea in the past. Likely still present. Will need outpatient evaluation. Plan: Back to IR later today for re-evaluation. Perhaps continue tpa verses pull catheter? Will transition to IV heparin, then start long-term oral anticoagulation. I will discuss the options with the patient. He will need anticoagulation for life. 30 min of critical care time spent directly with the patient. Discussed with the patient and his , hospitalist, IR, and the ICU multi disciplinary team. Subjective: Doing well with tPA. Denies shortness of breath but has been at bed rest. No chest pain, hemoptysis or leg pain. Complains of nasal stuffiness. Objective: Vital Signs Temp Pulse Resp BP Pulse Ox 36.5 C 80 21 H 121/75 H 99 03/01/18 18:32 03/02/18 14:00 03/02/18 14:00 03/02/18 14:00 03/02/18 14:00 Laboratory Results 03/02/18 06:40 03/02/18 06:40 03/01/18 03/02/18 03/03/18 05:59 05:59 05:59 Intake Total 2301 Output Total 450 250 Balance 1851 -250 PT 15.3 SEC (12.0-15.0) H 03/01/18 15:20 INR 1.19 (0.83-1.16) H 03/01/18 15:20 Laboratory Tests 03/02/18 03/02/18 03/02/18 06:40 12:00 12:00 Fibrinogen 301 Calcium 8.6 Magnesium 2.0 Troponin I 0.193 H Lower extremities have clot in both sides. See report. Physical Exam - Physical Exam General Appearance: alert, no apparent distress, obese EENT: other (On 2 L, 95-99%) Neck: normal inspection (Large neck) Respiratory: lungs clear, decreased breath sounds (At bases), No rales, No rhonchi, No pleural rub Cardiac/Chest: regular rate, rhythm (P2 appears increased. Cannot rule out soft gallop?) Abdomen: non-tender, soft (Obese), distended (Mildly), No normal bowel sounds ( Decreased, present) Male Genitalia: other (No Johnson catheter) Skin: normal color, warm/dry Extremities: pedal edema (Trace +), other (Right lower extremity is smaller than it was yesterday, only about 1 in larger than the left at the calf. No tenderness) Neuro/Psych: no motor/sensory deficits, No cognition abnormalities ICD10 Worksheet Patient Problems: Problems Problem Status Onset Multiple pulmonary emboli Acute Dyspnea Acute Pulmonary hypertension Acute
[2018-03-02] MEDS ORDERED: POTASSIUM CL 10 MEQ TAB PO ONE ×2 (17:00→21:17)
[2018-03-02 22:23] LABS: PLATELET COUNT 154 10^3/uL (150-400)
[2018-03-02 22:34] LABS: INR 1.24 (0.83-1.16); PROTIME(PATIENT) 15.8 SEC (12.0-15.0)
[2018-03-03] MEDS: HEPARIN/DEXTROSE 500 ML IV SCH ×3 (00:27→17:55)
[2018-03-03] MEDS ORDERED: HEPARIN 10,000 UNIT/10 ML MDV (1,000 UNIT/ML) IVP PRN (01:00)
[2018-03-03 04:02] LABS: PLATELET COUNT 138 10^3/uL (150-400)
[2018-03-03] MEDS ORDERED: POTASSIUM CL 10 MEQ TAB PO ONE (07:00)
[2018-03-03] MEDS: PANTOPRAZOLE SODIUM 40 MG TAB PO SCH (08:05)
[2018-03-03] MEDS: CETIRIZINE 10 MG TAB PO SCH (08:06)
[2018-03-03] MEDS: OXYMETAZOLINE 30 ML NASAL SPRAY EACHNARE SCH ×2 (08:06→19:33)
[2018-03-03] MEDS: ALBUTEROL 60 PUFFS/8 GM MDI IH SCH ×3 (08:07→18:53)
[2018-03-03] MEDS: FLUTICASONE/SALMETER 100/50MCG DISKUS IH SCH ×2 (08:08→18:53)
--- NOTE | 2018-03-03 13:56 | HOSPPROG ---
Hospitalist Progress Note Assessment/Plan: #Acute P.E. with Hemodynamic compromise #Bilateral LE DVT with pedal edema -Right popliteal and calf vein dvt's -Left distal femoral, popliteal, and calf vein dvt's #Hypotension, resolved #Right heart strain and elevated troponin likely from acute P.E. #Hypoxemia, persistent, still on 4L O2 #Query TIARA #Pedal Edema #Acute Kidney Injury, resolved with IVF #Leukocytosis: resolved #Obesity Plan: s/p IR catheter guided thrombolytics, now stopped Heparin Coumadin once appropriate per pulm restart home BP meds stop IVF D/w Intensive care team. Subjective: mild post nasal drip. no cp or sob. BP has increased Objective: Vital Signs Temp Pulse Resp BP Pulse Ox 36.6 C 74 19 139/74 H 94 03/03/18 08:00 03/03/18 12:00 03/03/18 12:00 03/03/18 12:00 03/03/18 12:00 Laboratory Results 03/03/18 03:30 03/03/18 03:30 03/02/18 03/03/18 03/04/18 05:59 05:59 05:59 Intake Total 2301 4199.7 278 Output Total 450 500 Balance 1851 3699.7 278 PT 15.8 SEC (12.0-15.0) H 03/02/18 22:05 INR 1.24 (0.83-1.16) H 03/02/18 22:05 - Physical Exam Constitutional: no apparent distress Eyes: PERRL Ears, Nose, Mouth, Throat: moist mucous membranes, hearing normal Cardiovascular: regular rate and rhythym, edema Respiratory: reduced air movement Gastrointestinal: normoactive bowel sounds, soft, non-tender abdomen Skin: warm Neurologic: AAOx3 Psychiatric: interacting appropriately, not anxious, not encephalopathic ICD10 Worksheet Patient Problems: Problems Problem Status Onset Dyspnea Acute Multiple pulmonary emboli Acute Pulmonary hypertension Acute
[2018-03-03] MEDS: VALSARTAN 160 MG TAB PO SCH (14:12)
[2018-03-03] MEDS: WARFARIN SODIUM 7.5 MG TAB PO SCH (15:50)
[2018-03-03] MEDS: guaiFENesin/CODEINE PHOS 10 ML UDCUP PO PRN (18:37)
[2018-03-03] MEDS: BENZONATATE 100 MG CAP PO PRN (22:01)
[2018-03-04] MEDS: guaiFENesin/CODEINE PHOS 10 ML UDCUP PO PRN ×3 (00:06→15:47)
[2018-03-04] MEDS: BENZONATATE 100 MG CAP PO PRN ×2 (04:49→07:54)
[2018-03-04] MEDS: HEPARIN/DEXTROSE 500 ML IV SCH (04:49)
[2018-03-04 05:23] LABS: INR 1.14 (0.83-1.16); PROTIME(PATIENT) 14.8 SEC (12.0-15.0)
[2018-03-04] MEDS ORDERED: POTASSIUM CL 10 MEQ TAB PO ONE ×2 (05:56→18:43)
[2018-03-04] MEDS: FLUTICASONE/SALMETER 100/50MCG DISKUS IH SCH ×2 (07:56→19:54)
[2018-03-04] MEDS: ALBUTEROL 60 PUFFS/8 GM MDI IH SCH ×3 (07:56→19:54)
[2018-03-04] MEDS: OXYMETAZOLINE 30 ML NASAL SPRAY EACHNARE SCH ×2 (09:31→19:53)
[2018-03-04] MEDS: VALSARTAN 160 MG TAB PO SCH (09:32)
[2018-03-04] MEDS: PANTOPRAZOLE SODIUM 40 MG TAB PO SCH (09:33)
[2018-03-04] MEDS: CETIRIZINE 10 MG TAB PO SCH (09:33)
[2018-03-04] MEDS: ENOXAPARIN 120 MG/0.8 ML SYR SC SCH ×2 (09:34→19:52)
--- NOTE | 2018-03-04 11:03 | PDINTPN ---
Radiological Technologist Progress Note Assessment/Plan: Assessment: Large volume pulmonary embolism with initial hypotension, hypoxemia. Initial right heart pressures approximately 60. S/p tPA lysis via pulmonary artery catheter placed by interventional Radiology. On heparin drip, transitioning to full-dose low molecular weight heparin.. Bilateral deep venous thrombosis. Little in the way of symptoms. Right leg has been bigger than the left but this was not noticed by the patient. Now both calves are about the same size. No pain, no significant edema. Treatment as per PE: Some of the infused tPA likely affective in lower extremity clot lysis. No specific interventional treatment warranted. On anticoagulation as per pulmonary embolism. Obesity History of reactive airways disease: On Advair and albuterol. Cough: Probably secondary to postnasal drainage, possibly allergies and/or reactive airways disease. Better with Robitussin and codeine History of systemic hypertension, reflux, allergies. History of snoring and sleep apnea in the past. Likely still present. He will likely need to go home with oxygen at night. For overnight oximetry study on room air tonight. Will need outpatient evaluation for TIARA. Plan: Transition to low molecular weight heparin today. Continue Coumadin at 7.5 for now. Follow PT/INR. Overnight oximetry tonight. Okay to ambulate. Probable discharge tomorrow on Lovenox and Coumadin. Oxygen likely will be needed as well. I will plan on following him in the office a couple of weeks after discharge. Dr. Vega to see patient tomorrow. Subjective: Doing well. Was on room air overnight. Saturations would dip into the mid 80s by report. No chest pain, no shortness of breath. Legs okay Objective: Vital Signs Temp Pulse Resp BP Pulse Ox 36.5 C 81 18 157/93 H 91 L 03/04/18 07:29 03/04/18 07:29 03/04/18 07:29 03/04/18 07:29 03/04/18 07:29 Laboratory Results 03/04/18 05:00 03/04/18 05:00 03/03/18 03/04/18 03/05/18 05:59 05:59 05:59 Intake Total 4199.7 3150 217 Output Total 500 Balance 3699.7 3150 217 PT 14.8 SEC (12.0-15.0) 03/04/18 05:00 INR 1.14 (0.83-1.16) 03/04/18 05:00 Laboratory Tests 03/03/18 03/03/18 03/04/18 03:30 03:30 05:00 WBC 5.25 RBC 4.62 Hgb 12.9 L Hct 38.4 L Plt Count 138 L Heparin Anti-Xa, Unfract 0.41 Sodium 137 Potassium 3.8 Chloride 111 H Carbon Dioxide 26 Anion Gap 0 L BUN 19 Creatinine 1.2 Glucose 95 Calcium 8.0 L NT-Pro-B Natriuret Pep 1750 H Physical Exam - Physical Exam General Appearance: alert, no apparent distress, obese EENT: PERRL/EOMI, other (On room air) Neck: normal inspection (Large neck, no obvious jugular venous distention) Respiratory: lungs clear (Anteriorly), decreased breath sounds (At bases), No rales, No rhonchi, No pleural rub Cardiac/Chest: regular rate, rhythm (Distant heart tones), No gallop Abdomen: normal bowel sounds, non-tender, soft (Obese) Extremities: pedal edema (Trace), swelling (No significant swelling. Right lower extremity approximately 1/4 inch bigger than the left) Neuro/Psych: no motor/sensory deficits, No cognition abnormalities ICD10 Worksheet Patient Problems: Problems Problem Status Onset Multiple pulmonary emboli Acute Dyspnea Acute Pulmonary hypertension Acute
--- NOTE | 2018-03-04 11:23 | HOSPPROG ---
Hospitalist Progress Note Assessment/Plan: #Acute P.E. with Hemodynamic compromise s/p thrombolysis #Bilateral LE DVT with pedal edema - right popliteal and calf vein dvt's, left distal femoral, popliteal, and calf vein dvt's -cont lovenox, coumadin started last night -discussed outpt INR f/u with PCP, Dr. Stringer #Hypotension, resolved #Right heart strain and elevated troponin likely from acute P.E. #Chronic cough - could be some pleuritic irritation from PE, but also consider post-nasal drip, allergies -start anti-histamine, flonase, prn nebs #Hypoxemia, resolved, now on RA #Query TIAAR - outpt sleep study #Pedal Edema #Acute Kidney Injury, resolved with IVF #Leukocytosis: resolved #Obesity #Dispo - transfer to PCU, possible d/c tomorrow Subjective: Pt feels ok, reports chronic cough, present since he travelled home from [place] in 10/2017. Notes recently being told he has reactive airway. No CP or SOB. No fevers/chills. Objective: Vital Signs Temp Pulse Resp BP Pulse Ox 36.5 C 81 18 157/93 H 91 L 03/04/18 07:29 03/04/18 07:29 03/04/18 07:29 03/04/18 07:29 03/04/18 07:29 Laboratory Results 03/04/18 05:00 03/04/18 05:00 03/03/18 03/04/18 03/05/18 05:59 05:59 05:59 Intake Total 4199.7 3150 217 Output Total 500 Balance 3699.7 3150 217 PT 14.8 SEC (12.0-15.0) 03/04/18 05:00 INR 1.14 (0.83-1.16) 03/04/18 05:00 - Physical Exam Constitutional: no apparent distress Eyes: PERRL Ears, Nose, Mouth, Throat: moist mucous membranes Cardiovascular: regular rate and rhythym Respiratory: no respiratory distress, clear to auscultation Gastrointestinal: normoactive bowel sounds, soft, non-tender abdomen Skin: warm Musculoskeletal: full muscle strength, other (b/l LE 1+ edema) Neurologic: AAOx3 Psychiatric: interacting appropriately ICD10 Worksheet Patient Problems: Problems Problem Status Onset Dyspnea Acute Multiple pulmonary emboli Acute Pulmonary hypertension Acute
--- NOTE | 2018-03-04 12:14 | ASMTCMCOM ---
CM Note CM Note Notes: Patient to transfer to PCU today may discharge Monday with f/u as out-pt with Carlos Gonsales. May go home on O2. No other discharge needs noted at this time. Date Signed: 03/04/2018 12:13 PM Electronically Signed By:Miley Cochran LCSW
[2018-03-04] MEDS: FLUTICASONE NASAL 120 SPRAYS/16 GM MDI EACHNARE SCH (15:43)
[2018-03-04] MEDS: WARFARIN SODIUM 7.5 MG TAB PO SCH (15:44)
[2018-03-05] MEDS: guaiFENesin/CODEINE PHOS 10 ML UDCUP PO PRN ×2 (00:15→10:03)
[2018-03-05 05:20] LABS: INR 1.42 (0.83-1.16); PROTIME(PATIENT) 17.5 SEC (12.0-15.0)
[2018-03-05 08:04] VITALS: BP 168/109
[2018-03-05] MEDS: FLUTICASONE/SALMETER 100/50MCG DISKUS IH SCH (08:31)
[2018-03-05] MEDS: ALBUTEROL 60 PUFFS/8 GM MDI IH SCH (08:31)
[2018-03-05] MEDS: ENOXAPARIN 120 MG/0.8 ML SYR SC SCH (09:07)
[2018-03-05] MEDS: VALSARTAN 160 MG TAB PO SCH (09:07)
[2018-03-05] MEDS: PANTOPRAZOLE SODIUM 40 MG TAB PO SCH (09:07)
[2018-03-05] MEDS: CETIRIZINE 10 MG TAB PO SCH (09:08)
[2018-03-05] MEDS: OXYMETAZOLINE 30 ML NASAL SPRAY EACHNARE SCH (09:09)
--- NOTE | 2018-03-05 10:01 | ASDISCHSUM ---
Discharge Information Plan Status:Home with No Needs Medically Cleared to Leave:03/05/2018 Discharge Date:03/05/2018 CM D/C Disposition:Home, Routine, Self-Care ADT D/C Disposition:Home, Routine, Self-Care Projected Discharge Date:03/05/2018 11:00 AM Transportation at D/C:Family Discharge Delay Reason: Follow-Up Date:03/05/2018 11:00 AM Discharge Slot: Final Diagnosis:Acute PE, Bilat LE DVT, Hypotension Placement Information Patient Contact Information Contact Name:HERSON Relationship: Address:[address] Work Phone: [employer] Alternate Phone: [facility]/Zip Code:[place] [address] Email: Financial Information Financial Class:HMO and PPO Plans Primary Plan Desc:[employer] PPO POS HMO SIG ADM Primary Plan Number:[id number] Secondary Plan Desc: Secondary Plan Number: Assessment Information [facility] CM Progress Note CM Note CM Note Notes: Patient admitted with SOB and progressive dyspnea for 4 months. Efforts to treat conservatively failed. In ED, imagine showed diffuse bilateral PE. He is admitted for IR guided thrombolytics and anticoagulation. Patient is and recently moved to [place] from [place]. He will likely be independent upon discharge, but Case Management will follow. Date Signed: 03/01/2018 02:41 PM Electronically Signed By:Lorri Boothe RN LACE LACE Length of stay for Answers: 4-6 days current admission Acuity / Level of Answers: Yes Care: Did the patient have an inpatient admission? Comorbidities - select Answers: Other Notes: HTN all that apply # of Emergency department Answers: 1-2 visits in the last 6 months Score: 9 Date Signed: 03/05/2018 10:00 AM Electronically Signed By:Miley Cochran LCSW [facility] CM Progress Note CM Note CM Note Notes: Patient to transfer to PCU today may discharge Monday with f/u as out-pt with Carlos Gonsales. May go home on O2. No other discharge needs noted at this time. Date Signed: 03/04/2018 12:13 PM Electronically Signed By:Miley Cochran LCSW Case Management Discharge Plan Note Case Management Discharge Discharge Order Complete? Answers: Yes Patient to Obtain Answers: via Family Medications Transportation Arranged Answers: Family/Friends Transport will Pick (Date 03/05/2018 11:00 AM & Time) Family Notified Answers: Yes Notes: Family to transport Discharge Comments Notes: Patient has been discharged home. No needs. Date Signed: 03/05/2018 09:59 AM Electronically Signed By:Miley Cochran LCSW Intervention Information
[2018-03-05] MEDS: FLUTICASONE NASAL 120 SPRAYS/16 GM MDI EACHNARE SCH (10:03)
--- NOTE | 2018-03-05 14:27 | GDS ---
[f rep st] DISCHARGE SUMMARY DISCHARGE DIAGNOSES: 1. Acute pulmonary emboli with hemodynamic compromise, status post thrombolysis. 2. Bilateral lower extremity deep vein thrombosis. 3. Hypotension in the setting of acute pulmonary embolus, resolved. 4. Elevated troponin secondary to heart strain secondary to acute pulmonary embolus. 5. Chronic cough. 6. Nocturnal hypoxemia. 7. Suspected obstructive sleep apnea. 8. Acute kidney injury, resolved. 9. Obesity. CONSULTANTS: 1. Carlos Gonsales MD, pulmonology. 2. Gavin Penn MD, cardiology. 3. Dr. Andrea Carvalho, interventional radiology. IMAGING STUDIES/PROCEDURES: 1. CT pulmonary angiogram showed multiple diffuse high-volume pulmonary thromboemboli with changes s uggestive of pulmonary infarcts and a right heart strain, March 01. 2. An echocardiogram, March 01, 2018, showed an ejection fraction of 55% with an enlarged right heart and a right ventricular systolic pressure of 59 with a dilated inferior vena cava, [id number] tricuspid regurgitation with moderately-increased pulmonary artery pressure. 3. PE thrombolysis with placement of a single-infusion catheter within the main pulmonary artery fol lowed by heparin infusion at 500 units/hour. 4. Bilateral lower extremity venous Doppler showed DVT in the right popliteal vein involving the dalton f veins as well as a DVT in the left distal femoral vein extending into the popliteal and calf veins. HISTORY: For details please see the history and physical dated March 01, 2018. In brief, the patient is a 62-year-old male with a history of hypertension, obesity, and probable obstructive sleep apnea, presents to the emergency department with dyspnea. Workup revealed acute pulmonary embolism with he modynamic compromise and hypotension. He was admitted to the intensive care unit for further managem ent and further hospital course. The patient was admitted to the ICU. Interventional Radiology cons ult was obtained. He underwent direct catheter infuse thrombolytic therapy followed by a heparin dri p. A lower extremity Doppler revealed source to be bilateral DVT. There were no clear provoking masha nts, though he did have a long car ride from [place] back in October and states he has been short of breath for several months. He was transitioned from heparin drip to Lovenox and started on Couma din. At the time of discharge, his INRs remained subtherapeutic at 1.4. He was given a prescription for a Lovenox bridge 1 mg/kg b.i.d. In addition, he was instructed to follow up at the [facility] for an INR tomorrow, the results of which will be sent to his primary care physician, Dr. Stringer. He understands he needs to have his dose adjusted based on the results of his INR. Further Coumadin and INR management per his Primary Care Physician at [facility]. In addition, I recommend he follow up with Dr. Delgado, senior sql server developer, to discuss the possibility of hypercoagulabl e workup as well as duration of anticoagulation therapy. The patient also expressed significant conc nick about a chronic cough. He has been treated with antihistamine, intranasal steroid, Advair, and R obitussin cough suppressant. He will follow up with Dr. Carlos Gonsales for further management of his c hronic cough. In addition, he likely has sleep apnea and needs to undergo a sleep study in the near future. He did have a nocturnal pulse ox study here, and he desatted to 78%, though it is unclear if this was an accurate reading. Most of his saturations during the night were in the high 80s or low 90s. He will follow up with Pulmonology for sleep study and further management of his presumed sleep apnea. With respect to his hypertension, he was continued on his losartan, and he will resume hydrochlorothi azide at discharge with close PCP followup. FOLLOWUP: 1. Braden Stirnger MD, primary care. 2. INR tomorrow, March 06, with results to Dr. Stringer and further Coumadin dosing per his instructions. 3. Avelina Delgado MD, hematology, for consideration of hypercoagulable workup and discuss duration of therapy of anticoagulation. 4. Carlos Gonsales MD, pulmonology, for his chronic cough and arrange for sleep study. DISCHARGE MEDICATIONS: Please see [facility] for completed updated outpatient medication list. New medications on discharge include: 1. Coumadin 7.5 mg p.o. daily #45, no refills. 2. Lovenox 120 mg subcutaneous b.i.d. #6, 1 refill. This should be discontinued when his INR is gre ater than 1.9. 3. Guaifenesin codeine cough syrup 5 mL p.o. q.6 hours p.r.n., 118 mL, no refills. I recommend this not be continued usp. /[id number]/MODL
== END 2018-03-05 10:31 | disposition home or self-care (01) | DRG 176 ==
LOC: F2N 14:27
PROVIDERS: ADMIT Family Medicine; ATTEND Hospitalist
DX: I26.99 Other pulmonary embolism without acute cor pulmonale (principal); I82.493 Acute embolism and thrombosis of other specified deep vein of lower extremity, bilateral; N17.9 Acute kidney failure, unspecified; I27.20 Pulmonary hypertension, unspecified; I95.9 Hypotension, unspecified; R09.02 Hypoxemia; D72.829 Elevated white blood cell count, unspecified; R79.9 Abnormal finding of blood chemistry, unspecified; I36.1 Nonrheumatic tricuspid (valve) insufficiency; R05 Cough; G47.30 Sleep apnea, unspecified; E66.9 Obesity, unspecified; I10 Essential (primary) hypertension; Z82.49 Family history of ischemic heart disease and other diseases of the circulatory system
CPT/HCPCS: 85520-90; C1757; C1769; C1894; J1644; J1650; J2250; J2310; J2997; J3010; Q9967

== ENCOUNTER → 2018-08-07 | Outpatient (CLI) | payer OTHER | LOC: FIMAGING 18:43 | PROVIDERS: ATTEND Orthopaedic Surgery | DX: M23.322 Other meniscus derangements, posterior horn of medial meniscus, left knee (principal); M94.8X6 Other specified disorders of cartilage, lower leg; M22.42 Chondromalacia patellae, left knee; M25.462 Effusion, left knee ==